=== PATIENT | male | born 1980 | race Two or more races ===

== ENCOUNTER 2019-12-08 18:59 | Emergency (ER) | payer OTHER ==
[~2019-12-08] VITALS: Ht 175.3 cm; Wt 95.0 kg
[2019-12-08 19:00] VITALS: BP 129/78
[2019-12-08] MEDS ORDERED: HYDR-3165 PO (19:49)
--- NOTE | 2019-12-08 19:53 | PHYS DOC ---
Past History Past Medical History: Other Additional Past Medical Histor: hernia Past Surgical History: No Surgical History Alcohol Use: None General Adult EDM: Chief Complaint: LOWER EXT PAIN HPI: HPI: 39-year-old male presents with right ankle pain. The patient was running on uneven terrain when he rolled his right ankle medially. He immediately fell to the ground and had pain. He states that he is unable to put weight on it due to the pain. He is concerned about it being broken. There is some swelling over the lateral malleolus. He denies any other injuries. Review of Systems: Review of Systems: Constitutional: Denies fever or chills Eyes: Denies change in visual acuity HENT: Denies nasal congestion or sore throat Respiratory: Denies cough or shortness of breath Cardiovascular: Denies chest pain or edema GI: Denies abdominal pain, nausea, vomiting, bloody stools or diarrhea : Denies dysuria Musculoskeletal: Right ankle pain Integument: Denies rash Neurologic: Denies headache, focal weakness or sensory changes Endocrine: Denies polyuria or polydipsia Lymphatic: Denies swollen glands Psychiatric: Denies depression or anxiety Heart Score: Risk Factors: Risk Factors: DM, Current or recent (<one month) smoker, HTN, HLP, family history of CAD, obesity. Risk Scores: Score 0 - 3: 2.5% MACE over next 6 weeks - Discharge Home Score 4 - 6: 20.3% MACE over next 6 weeks - Admit for Clinical Observation Score 7 - 10: 72.7% MACE over next 6 weeks - Early Invasive Strategies Allergies: Allergies: Allergies Coded Allergies Type Severity Reaction Last Updated Verified No Known Allergies Allergy Unknown 12/08/19 Yes Physical Exam: PE: Constitutional: Well developed, well nourished, no acute distress, non-toxic appearance. [] HENT: Normocephalic, atraumatic, bilateral external ears normal, oropharynx moist, no oral exudates, nose normal. [] Eyes: PERRLA, EOMI, conjunctiva normal, no discharge. [] Neck: Normal range of motion, no tenderness, supple, no stridor. [] Cardiovascular:Heart rate regular rhythm, no murmur [] Lungs & Thorax: Bilateral breath sounds clear to auscultation [] Abdomen: Bowel sounds normal, soft, no tenderness, no masses, no pulsatile masses. [] Skin: Warm, dry, no erythema, no rash. [] Back: No tenderness, no CVA tenderness. [] Extremities: Swelling of the lateral malleolus right ankle, tenderness over the same area, no obvious deformity, pain with inversion [] Neurologic: Alert and oriented X 3, normal motor function, normal sensory function, no focal deficits noted. [] Psychologic: Affect normal, judgement normal, mood normal. [] Current Patient Data: Vital Signs: Vital Signs Date Time Temp Pulse Resp B/P (MAP) Pulse Ox O2 Delivery O2 Flow Rate FiO2 12/08/19 19:00 98.5 93 18 129/78 (95) 96 Room Air EKG: EKG: [] Radiology/Procedures: Radiology/Procedures: [] Impressions: ANKLE RIGHT 3V History: Twisted ankle. Pain. Technique: 3 views right ankle. Comparison: None. Findings: Lateral ankle soft tissue swelling. Normal alignment. Symmetric ankle mortise. No fracture. Small plantar calcaneal spur. Impression: 1. No acute osseous abnormality. 2. Lateral ankle soft tissue swelling. Electronically signed by: Sachin Herman DO (12/08/2019 7:50 PM) [facility] DICTATED AND SIGNED BY: SACHIN HERMAN DO DATE: 12/08/191949 CC: BILLY ROGERS DO; PCP,NO ~ Course & Med Decision Making: Course & Med Decision Making Pertinent Labs and Imaging studies reviewed. (See chart for details) The patient's x-ray is negative for fracture. Appears to have a sprain ankle. We will place him in an air splint. I will also discharge him with [place] pain medication. He is stable for discharge at this time. [] Dragon Disclaimer: Dragon Disclaimer: This electronic medical record was generated, in whole or in part, using a voice recognition dictation system. Departure Departure: Impression: Primary Impression: Right ankle sprain Qualified Codes: S93.401A - Sprain of unspecified ligament of right ankle, initial encounter Disposition: HOME/RESIDENCE PRIOR TO ADM Condition: STABLE Referrals: PCP,NO (PCP) Patient Instructions: Ankle Sprain, Acute, with Phase I Rehab-[facility] Scripts Hydrocodone Bit/Acetaminophen (NORCO 5-325 TABLET) 1 Each Tablet 1 TAB PO PRN Q6HRS PRN for PAIN, #14 TAB 0 Refills Prov: BILLY ROGERS DO 12/08/19 BILLY ROGERS DO December 08, 2019 19:53
== END 2019-12-08 20:00 | disposition home or self-care (01) ==
LOC: ER 18:59
DX: S93.401A Sprain of unspecified ligament of right ankle, initial encounter (principal); X50.3XXA Overexertion from repetitive movements, initial encounter; Y93.02 Activity, running; Y92.89 Other specified places as the place of occurrence of the external cause; Y99.8 Other external cause status
CPT/HCPCS: 29515; 73610; 99283